=== PATIENT | female | born 1985 ===

== ENCOUNTER 2017-10-22 10:07 | Emergency (ER) | payer OTHER ==
[~2017-10-22] VITALS: Ht 152.4 cm; Wt 72.6 kg
[2017-10-22] MEDS ORDERED: KETOROLAC 60 MG/2 ML VIAL IM ONE (11:00)
[2017-10-22] MEDS ORDERED: ORPHENADRINE 60 MG/2 ML (NORFLEX) AMP IM ONE (11:00)
--- NOTE | 2017-10-22 11:00 | ED Upper Extremity ---
General Chief Complaint: Upper Extremity Stated Complaint: RT ARM PAIN Nursing Triage Note: Pt c/o R arm pain x4 months, worse over the past month. Pt reports pain is worse at the shoulder and radiates down arm. Nursing Sepsis Screen: No Definite Risk Source: patient Exam Limitations: no limitations History of Present Illness Time seen by provider: 10:57 Initial Comments To ER with right arm pain and tingling sensation. This begins at the lateral right chest and radiates down the arm terminating at the wrist. She states it gets worse with repetitive movements. 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 Throughout the course of the day she would notice her on to become more painful and more weak. She has not had this evaluated. She does have a history of lumpectomy to the right breast 6-7 years ago. She is uncertain when her last mammogram was she denies cough or fevers chills or night sweats or unintentional weight loss. Onset: just prior to arrival Severity: moderate Pain/Injury Location: right shoulder Modifying Factors: Worse With Movement Allergies and Home Medications Allergies Coded Allergies: No Known Drug Allergies (Unverified , 10/22/17) Home Medications Unable to Obtain Active Prescriptions or Reported Meds Constitutional: see HPI EENTM: see HPI Respiratory: no symptoms reported Cardiovascular: no symptoms reported Genitourinary: no symptoms reported Musculoskeletal: no symptoms reported Skin: no symptoms reported Psychiatric/Neurological: No Symptoms Reported Past Yuumcja-Dknahh-Mmdokl Hx Patient Social History Recent Foreign Travel: No Contact w/Someone Who Travel: No Recent Infectious Disease Expo: No Physical Exam Vital Signs Vital Sign - Last 12Hours 10/22/17 10:35 Temp 97.5 Pulse 83 Resp 18 B/P (MAP) 109/62 (78) Pulse Ox 100 O2 Delivery Room Air Capillary Refill : Less Than 3 Seconds General Appearance: WD/WN, no apparent distress HEENT: PERRL/EOMI, normal ENT inspection Neck: non-tender, full range of motion Respiratory: normal breath sounds, no respiratory distress, no accessory muscle use Gastrointestinal: normal bowel sounds, non tender, soft Shoulder: normal inspection, pain (tenderness to palpation over the scapula and the anterior lateral superior right chest) Elbow/Forearm: normal inspection, non-tender, no evidence of injury Wrist: Yes normal inspection, Yes non-tender Hand: normal inspection, non-tender Neurologic/Psychiatric: alert, normal mood/affect, oriented x 3 Skin: normal color, warm/dry Comments [employer] strength is equal bilaterally Progress/Results/Core Measures Results/Orders My Orders Orders - ROGELIO ZELAYA APRN Chest Pa/Lat (2 View) (10/22/17 10:56) Shoulder, Right, 3 Views (10/22/17 10:56) Ketorolac Injection (Toradol Injection) (10/22/17 11:00) Orphenadrine Injection (Norflex Injectio (10/22/17 11:00) Vital Signs/I&O Vital Sign - Last 12Hours 10/22/17 10:35 Temp 97.5 Pulse 83 Resp 18 B/P (MAP) 109/62 (78) Pulse Ox 100 O2 Delivery Room Air Blood Pressure Mean: 78 Departure Impression Impression: Primary Impression: Arm pain, right Disposition: 01 HOME, SELF-CARE Condition: Stable Departure-Patient Inst. Decision time for Depature: 11:32 Referrals: [facility] (PCP/Family) Primary Care Physician Patient Instructions: NO INSTRUCTIONS GIVEN Add. Discharge Instructions: 1. Follow-up with [facility]. Call today to make an appointment to be seen as soon as possible for further evaluation of your arm pain which may include CAT scan of her chest or an MRI of the shoulder or neck. All discharge instructions reviewed with patient and/or family. Voiced understanding. Scripts Naproxen (Naprosyn) 500 Mg Tablet 500 MG PO BID, #30 TAB Prov: ROGELIO ZELAYA APRN 10/22/17 Cyclobenzaprine HCl (Cyclobenzaprine HCl) 5 Mg Tablet 5 MG PO TID, #21 TAB Prov: ROGELIO ZELAYA APRN 10/22/17 ROGELIO ZELAYA APRN Oct 22, 2017 11:00
[2017-10-22] MEDS ORDERED: CYCL5TAB PO (11:33)
[2017-10-22] MEDS ORDERED: NAPR-1071 PO (11:33)
--- NOTE | 2017-10-22 11:35 | Diagnostic Imaging Report ---
INDICATION: Shoulder pain. 3 views were obtained. FINDINGS: Alignment is normal. There is no fracture or dislocation. Right lung apex is clear. Soft tissues are unremarkable. IMPRESSION: No focal abnormality in the right shoulder. Dictated by: Dictated on workstation # [id number]
--- NOTE | 2017-10-22 11:36 | Diagnostic Imaging Report ---
INDICATION: Chest pain and difficulty breathing. PA and lateral views of the chest were obtained. FINDINGS: The heart size, mediastinal configuration, and pulmonary vascularity are within normal limits. There is no pleural effusion, pneumothorax, or pneumonia. The osseous structures are unremarkable. IMPRESSION: No acute cardiopulmonary abnormality. Dictated by: Dictated on workstation # [id number]
[2017-10-22 11:40] VITALS: BP 112/68
== END 2017-10-22 11:40 | disposition home or self-care (01) ==
LOC: ER 10:13
DX: M79.601 Pain in right arm (principal); X50.0XXA Overexertion from strenuous movement or load, initial encounter
CPT/HCPCS: 71046; 73030; 99284